=== PATIENT | female | born 1985 | race Asian ===

== ENCOUNTER 2021-10-09 07:37 | Observation (INO) ==
[2021-10-09] MEDS ORDERED: Metoclopramide 10 MG/2 ML VIAL IVP PRN (07:55)
[2021-10-09] MEDS ORDERED: Famotidine 20 MG/2 ML VIAL IVP PRN (07:55)
[2021-10-09] MEDS ORDERED: Naloxone 0.4 MG/ML INJ IVP PRN (07:55)
[2021-10-09] MEDS ORDERED: Ringers Solution, Lactated 1,000 ML IVC SCH (08:00)
[2021-10-09 08:41] LABS: Basophils % 0.6 %; Eosinophils # 0.1 K/mcL (0.0-0.6); Eosinophils % 1.3 %; Hematocrit 40.5 % (35.3-44.9); Hemoglobin 13.7 g/dL (11.5-15.4); Immature Granulocytes % 0.4 % (0-4); Lymphocytes # 1.7 K/mcL (0.6-4.6); Lymphocytes % 24.8 %; Mean Corpuscular HGB Conc 33.8 g/dL (31.6-35.5); Mean Corpuscular Hemoglobin 32.2 pg (28.0-33.3); Mean Corpuscular Volume 95.3 fL (83.0-100.0); Mean Platelet Volume 9.3 fL (9.4-12.4); Monocytes # 0.6 K/mcL (0.0-1.3); Monocytes % 8.8 %; Neutrophils # 4.3 K/mcL (1.6-8.9); Platelet Count 268 K/mcL (140-400); Red Blood Count 4.25 M/mcL (3.82-4.97); Red Cell Distribution Width 11.4 % (11.5-14.5); Segmented Neutrophils % 64.1 %; White Blood Count 6.8 K/mcL (4.3-11.1)
[2021-10-09 09:18] LABS: Influenza A PCR Negative (Negative); Influenza B PCR Negative (Negative); Resp. Syncytial Virus PCR Negative (Negative)
[2021-10-09 09:20] LABS: SARS-CoV-2 by PCR (In House) Negative (Negative)
[2021-10-09] MEDS ORDERED: Doxycycline 100 MG CAPSULE PO ONE (09:24)
[2021-10-09] MEDS ORDERED: *HR* FentaNYL (PF) 100 MCG/2 ML VIAL ONE (10:20)
[2021-10-09] MEDS ORDERED: *HR* Propofol 200 MG/20 ML VIAL IVP ONE (10:20)
[2021-10-09] MEDS ORDERED: Ketorolac 30 MG/ML VIAL ONE (10:21)
[2021-10-09] MEDS ORDERED: Lidocaine -MPF 2% 5 ML VIAL ONE (10:21)
[2021-10-09] MEDS ORDERED: Ondansetron 4 MG/2 ML VIAL ONE (10:21)
[2021-10-09] MEDS ORDERED: Tranexamic Acid 1,000 MG/100ML 1,000 MG/100 ML PIGGYBACK IVPB ONE (10:42)
[2021-10-09] MEDS ORDERED: *HR* Vasopressin 20 UNIT/ML VIAL IVP ONE (10:49)
[2021-10-09 11:31] VITALS: O2SAT 100
[2021-10-09] MEDS ORDERED: Ibuprofen 600 MG TABLET PO ONE (12:05)
[2021-10-09] MEDS ORDERED: Methylergonovine 0.2 MG/ML AMPUL IM ONE ×2 (12:41→13:37)
[2021-10-09 12:51] VITALS: BP 111/73; PULSE 82
== END 2021-10-09 13:38 | disposition home or self-care (01) ==
LOC: SAMDAY 07:37 → INTOOBSV 07:41 → 1NENULAB 07:41
PROVIDERS: ADMIT Student in an Organized Health Care Education/Training Program; ATTEND Student in an Organized Health Care Education/Training Program

== ENCOUNTER → 2021-10-09 17:45 | Observation (INO) ==
[2021-10-09 15:46] LABS: Basophils % 0.1 %; Hematocrit 31.2 % (35.3-44.9); Immature Granulocytes % 0.5 % (0-4); Lymphocytes # 0.7 K/mcL (0.6-4.6); Lymphocytes % 6.6 %; Mean Corpuscular HGB Conc 34.9 g/dL (31.6-35.5); Mean Corpuscular Volume 94.5 fL (83.0-100.0); Mean Platelet Volume 9.4 fL (9.4-12.4); Monocytes # 0.1 K/mcL (0.0-1.3); Monocytes % 0.8 %; Neutrophils # 9.3 K/mcL (1.6-8.9); Platelet Count 208 K/mcL (140-400); Red Cell Distribution Width 11.2 % (11.5-14.5); White Blood Count 10.1 K/mcL (4.3-11.1)
[2021-10-09 15:47] LABS: Hemoglobin 10.9 g/dL (11.5-15.4)
== END | disposition home or self-care (01) ==
LOC: 1NENULAB
PROVIDERS: ADMIT Student in an Organized Health Care Education/Training Program; ATTEND Student in an Organized Health Care Education/Training Program